=== PATIENT | female | born 1930 | race Caucasian/White ===

== ENCOUNTER 2016-11-07 11:23 | Emergency (ER) | payer MEDICARE, OTHER ==
[~2016-11-07] VITALS: Ht 144.7 cm; Wt 60.3 kg
[~2016-11-07 11:23] MED LIST: ASPIRIN81 M1 PO; CALCIUM600 M1 PO; CLARITIN10 MG PO; DIOVAN40 MG PO; LOMOTIL 0.025 M1 TA1 PO; MULTIPLE VITAMI1 CAP PO; OMNICEF300 MG PO; VICODIN 5/500 505 MG PO
[2016-11-07] MEDS ORDERED: MECLIZINE HYD12.5 MG PO (13:23)
[2016-11-07] MEDS ORDERED: PREDNISONE10 MG PO ×2 (13:23→13:30)
== END 2016-11-07 13:26 | disposition home or self-care (01) ==
LOC: ED 11:23
DX: H83.01 Labyrinthitis, right ear (principal); Z79.899 Other long term (current) drug therapy; Z79.82 Long term (current) use of aspirin

== ENCOUNTER → 2017-01-06 | Day surgery (SDC) | payer MEDICARE, OTHER ==
[~2017-01-06] VITALS: Ht 152.4 cm; Wt 61.2 kg
[~2017-01-06] MED LIST changes: +MECLIZINE HYD12.5 MG PO; +PREDNISONE10 MG PO
--- NOTE | ~2017-01-06 | O ---
[place], [place] OPERATIVE NOTE NAME: [facility] [id number] UNIT #: [id number] ROOM: DOCTOR: LESTER CORONADO MD BIRTHDATE: [birth year] DOS: 01/06/2017 PREOPERATIVE DIAGNOSIS: Toxic labyrinthitis right ear. POSTOPERATIVE DIAGNOSIS: Toxic labyrinthitis right ear. OPERATION: Intratympanic dexamethasone perfusion right ear. SURGEON: Dr. Coronado. ANESTHESIA: General. OPERATIVE FINDINGS AND PROCEDURE: Following induction of general anesthesia the patient was positioned supine on the OR table, draped in a standard fashion for ear surgery. Approximately 1 mL of dexamethasone injection 10 mg/mL concentration was placed in the right middle ear space using a 25 gauge spinal needle. The patient tolerated the procedure well, was awakened and transported to PACU in satisfactory condition. LESTER CORONADO MD CM:OPRECORD:OPERATIVE NOTE [id number] LESTER CORONADO MD 01/06/17 1500 interface
[2017-01-06 10:20] VITALS: BP 156/83
[2017-01-06 12:00] VITALS: BP 99/54
[2017-01-06 12:15] VITALS: BP 154/79
[2017-01-06 12:30] VITALS: BP 156/72
== END | disposition home or self-care (01) ==
LOC: SDC 12-31 10:15
DX: H83.01 Labyrinthitis, right ear (principal); I10 Essential (primary) hypertension; E78.5 Hyperlipidemia, unspecified; Z90.710 Acquired absence of both cervix and uterus; Z98.890 Other specified postprocedural states

== ENCOUNTER 2017-02-19 08:08 | Emergency (ER) | payer MEDICARE, OTHER ==
[~2017-02-19] VITALS: Ht 157.4 cm; Wt 63.5 kg
[~2017-02-19 08:08] MED LIST changes: -DIOVAN40 MG PO; +DIOVAN80 M1 PO
[2017-02-19] MEDS ORDERED: B COMPLEX1 EACH PO (08:17)
[2017-02-19] MEDS ORDERED: MECLIZINE HCL12.5 MG PO (08:18)
[2017-02-19 09:09] LABS: BASO # 0.1 10*3/uL (0.0-0.1); BASO % 1.2 % (0.0-1.0); EOS # 0.1 10*3/uL (0.0-0.4); EOS % 1.8 % (1.0-4.0); HEMATOCRIT 39.5 % (37.0-47.0); HEMOGLOBIN 13.3 g/dl (12.0-16.0); LYMPH # 1.1 10*3/uL (1.3-4.4); LYMPH % 25.6 % (27.0-41.0); MEAN CELL VOLUME 89.4 fl (81.0-99.0); MEAN CORPUSCULAR HGB 30.1 pg (27.0-31.0); MEAN CORPUSCULAR HGB CONC 33.7 g/dl (33.0-37.0); MEAN PLATELET VOLUME 10.7 fl (9.6-12.3); MONO # 0.5 10*3/uL (0.1-1.0); MONO % 11.1 % (3.0-9.0); NEUT # 2.6 10*3/uL (2.3-7.9); NEUT % 60.1 % (47.0-73.0); PLATELET COUNT AUTOMATED 183 10*3/uL (130-400); RED BLOOD COUNT 4.42 10*6/uL (4.10-5.10); RED CELL DISTRI WIDTH 12.8 % (0-14.5); WHITE BLOOD COUNT 4.3 10*3/uL (4.8-10.8)
[2017-02-19 09:24] LABS: ALBUMIN 3.2 gm/dl (3.1-4.5); ALKALINE PHOSPHATASE 84 U/L (45-117); BILIRUBIN, TOTAL 0.3 mg/dl (0.2-1.0); BUN 17 mg/dl (7-24); CARBON DIOXIDE 28 mmol/L (21-32); CHLORIDE 105 mmol/L (98-107); EST GLOM FILT AFRICAN AMERICAN > 60 ml/min; GLUCOSE 87 mg/dL (65-99); POTASSIUM 3.6 mmol/L (3.5-5.1); SGOT/AST 17 IU/L (3-35); SGPT/ALT 17 U/L (12-78); SODIUM 142 mmol/L (136-145); TOTAL PROTEIN 6.5 gm/dL (6.4-8.2)
[2017-02-19] MEDS ORDERED: GOOD NEIGHBOR M25 M1 PO (11:03)
== END 2017-02-19 11:11 | disposition home or self-care (01) ==
LOC: ED 08:08
PROVIDERS: Emergency Medicine
DX: H83.09 Labyrinthitis, unspecified ear (principal); Z79.82 Long term (current) use of aspirin; Z79.899 Other long term (current) drug therapy

== ENCOUNTER 2017-06-21 18:25 | Inpatient (IN) | payer MEDICARE, OTHER ==
[~2017-06-21] VITALS: Ht 154.9 cm; Wt 61.3 kg
--- NOTE | ~2017-06-21 | CON ---
[place], [place] REPORT OF CONSULTATION NAME[id number] UNIT #: [id number] ROOM: 505 DOCTOR: ASHLEY HA MD BIRTHDATE: [birth year] DOS: 06/22/2017 CARDIOLOGY CONSULTATION REASON FOR CONSULTATION: Near syncope, elevated troponin. HISTORY OF PRESENT ILLNESS: The patient is an 87-year-old woman who has no previously documented heart disease. She does have a history of essential hypertension, but no history of diabetes, myocardial infarction, or stroke. Several months ago, she did have an episode of vertigo that was felt to be due to an acute middle ear infection. She was treated with an injection of steroid into the middle ear. This improved, but recently the patient has had problems with lightheadedness and fatigue. She also noticed increased urinary frequency. She was seen by her primary physician, Dr. Francois, who diagnosed a urinary tract infection and placed her on Macrodantin. She became even more lightheaded and was concerned that the medicine may be having an adverse reaction for her. She therefore came in to the Emergency Room, where she was noted to be hypertensive with a normal pulse. She was hyponatremic with sodium of 128. In addition, her troponin was mildly elevated at 0.314. On repeat it was 0.213 and then it was 0.166. Cardiology was therefore asked to assist in her evaluation. The patient denies any chest pain. She denies palpitations, but has been weak and lightheaded. Her electrocardiogram showed no acute changes. PAST MEDICAL HISTORY: Includes: 1. Essential hypertension. 2. Vertigo. 3. Foot surgery, thyroidectomy and hysterectomy. 4. No history of myocardial infarction, stroke or diabetes. MEDICATIONS: Prior to admission included aspirin 81 mg per day, calcium carbonate 600 mg daily, loratadine 10 mg daily p.r.n., meclizine 25 mg q.i.d. p.r.n. vertigo, multivitamin once a day, valsartan 80 mg daily, multivitamin with B daily, and diclofenac gel 100 mg applied topically t.i.d. ALLERGIES: The patient has no known drug allergies. REVIEW OF SYSTEMS: The patient denies diplopia or loss of vision. She denies focal weakness. She denies fevers, chills, sweats or recent weight change. She denies vomiting, but she has had some nausea. She has had urinary frequency. She denies hemoptysis or hematemesis. She has not had any chest pain or palpitations. She denies any skin rashes. She denies peripheral edema. The remainder of the review of systems is negative except as noted above. SOCIAL HISTORY: The patient lives alone. She does not smoke or consume alcohol. PHYSICAL EXAMINATION: GENERAL: Reveals an elderly, slender white female who is awake, alert and oriented. [place], [place] REPORT OF CONSULTATION NAME: ZEESHAN KAPADIA UNIT #: [id number] ROOM: [facility] DOCTOR: ASHLEY HA MD BIRTHDATE: [birth year] VITAL SIGNS: Pulse is 63 and regular, blood pressure is 125/61. She is afebrile. She weighs 61.3 kg and has a body mass index of 25.5. HEENT: Normocephalic and atraumatic. Extraocular muscles are intact. Sclerae are clear. Pupils are equal, round and react to light. The oral mucosa is moist. Tongue is midline. NECK: Supple. She has no jugular distention. Carotids are full. I heard no bruits. She had no neck or supraclavicular masses and no thyromegaly. RESPIRATORY: Respirations are unlabored. Her chest is clear to auscultation and percussion. She has no presacral edema or chest wall tenderness. CARDIOVASCULAR: Her heart has a regular rhythm. She has a fourth heart sound, but no third heart sound. She has a grade 2/6 systolic ejection murmur along the left sternal border, radiating toward the base. No diastolic murmurs are present. The S2 is well preserved. There is no S3. ABDOMEN: Soft and normally active without masses, organomegaly or bruits. EXTREMITIES: Showed no edema. Pedal pulses are palpable in the feet. DIAGNOSTIC DATA: Echocardiogram was reviewed. It shows aortic sclerosis without stenosis. It shows left ventricular size and overall function to be normal with an ejection fraction of about 60%. There is stage 1 diastolic dysfunction and mild concentric left ventricular hypertrophy present. There is mitral annular calcification, but no significant mitral malfunction. Right ventricular systolic pressures are normal. IMPRESSION: 1. Lightheadedness with near syncope. 2. Hyponatremia. 3. Mild elevation in troponin. 4. Urinary tract infection. 5. Hypertension with echocardiographic evidence for hypertensive heart disease. PLAN: I have a hard time explaining the patient's hyponatremia, based on her medications or history. It is possible that she is a psychogenic water drinker, but she is not behaving that way in the hospital and her sodium is correcting rapidly. It may be that she has a very limited diet at home, but again I do not have any evidence for that. I agree that she should be treated for urinary tract infection. We will check orthostatic vital signs. She has been in sinus rhythm on the monitor. If her orthostatics are normal, I do not know that any other cardiac workup would be appropriate at this time. Even with her mild elevation in troponin, I think that the troponin could be attributed to her urinary tract infection and do not suspect that she has any significant coronary artery disease based on her EKG and echo. I thank the hospitalist physicians for asking our advice regarding her care. [place], [place] REPORT OF CONSULTATION NAME: KANGZEESHAN UNIT #: [id number] ROOM: [facility] DOCTOR: ASHLEY HA MD BIRTHDATE: [birth year] ASHLEY HA MD CM:CONSTR:REPORT OF CONSULTATION 1632 06/23/17 0445 interface
[~2017-06-21 18:25] MED LIST changes: +B COMPLEX1 EACH PO; +GOOD NEIGHBOR M25 M1 PO; +MECLIZINE HCL12.5 MG PO
[2017-06-21 18:30] VITALS: BP 176/92
[2017-06-21 19:23] LABS: BILIRUBIN NEGATIVE (NEGATIVE); BLOOD 1+ (NEGATIVE); CLARITY CLEAR (CLEAR); COLOR YELLOW (YELLOW); GLUCOSE NEGATIVE (NEGATIVE); KETONE NEGATIVE (NEGATIVE); LEUKO ESTERASE 1+ (NEGATIVE); NITRITE NEGATIVE (NEGATIVE); PH 6.5 (5.0-9.0); SPECIFIC GRAVITY <= 1.005 (1.005-1.030); UROBILINOGEN 0.2 E.U./dl (0.2-1.0)
[2017-06-21 19:28] LABS: BACTERIA 1+; EPITHELIAL CELLS 0-2; RBC 0-2 rbc/hpf (0-2)
[2017-06-21 19:29] VITALS: BP 167/83
[2017-06-21 19:35] LABS: BASO % 0.6 % (0.0-1.0); EOS % 0.8 % (1.0-4.0); HEMATOCRIT 36.8 % (37.0-47.0); HEMOGLOBIN 12.9 g/dl (12.0-16.0); LYMPH # 1.3 10*3/uL (1.3-4.4); LYMPH % 26.3 % (27.0-41.0); MEAN CELL VOLUME 84.6 fl (81.0-99.0); MEAN CORPUSCULAR HGB 29.7 pg (27.0-31.0); MEAN CORPUSCULAR HGB CONC 35.1 g/dl (33.0-37.0); MONO # 0.6 10*3/uL (0.1-1.0); MONO % 11.6 % (3.0-9.0); NEUT % 60.5 % (47.0-73.0); PLATELET COUNT AUTOMATED 207 10*3/uL (130-400); RED BLOOD COUNT 4.35 10*6/uL (4.10-5.10); RED CELL DISTRI WIDTH 13.2 % (0-14.5)
[2017-06-21 19:53] LABS: ALBUMIN 3.1 gm/dl (3.1-4.5); ALKALINE PHOSPHATASE 94 U/L (45-117); BUN 11 mg/dl (7-24); CHLORIDE 92 mmol/L (98-107); CREATININE 0.41 mg/dL (0.55-1.02); SGOT/AST 22 IU/L (3-35); SGPT/ALT 22 U/L (12-78); SODIUM 128 mmol/L (136-145); TOTAL PROTEIN 6.7 gm/dL (6.4-8.2)
[2017-06-21 19:56] LABS: TROPONIN I 0.314 ng/ml (<0.045)
--- NOTE | 2017-06-21 19:57 | NUR ---
CRITICAL TROPININ FROM LAB. DR. HELLER AND JOYCELYN TALAVERA NOTIFIED.
[2017-06-21 20:11] VITALS: BP 171/83
--- NOTE | 2017-06-21 21:16 | NUR ---
REPORT RECEIVED FROM MARTÍNEZ OWEN FROM ER AT THIS TIME. PATIENT TO ARRIVE TO FLOOR SHORTLY.
--- NOTE | 2017-06-21 21:25 | NUR ---
A 87, admitted to 5E, under the services of JVOAN Toure DO with a diagnosis of HYPONATREMIA, ELEVATION OF CARDIAC ENZYMES, NEAR SYNCOPE. Chief complaint is UTI SYMPTOMS, DIZZINESS. Patient arrived via stretcher from ER. Monitor applied. Initial assessment completed. Vital signs taken and recorded. JOVAN TOURE DO notified of admission to the unit. Orders received. See assessment for past medical history, medications and allergies. Patient and/or family oriented to unit. [facility] visitation policy reviewed. Clothing/patient valuable form completed. WERNER NOLASCO
[2017-06-21 21:30] VITALS: BP 186/88
--- NOTE | 2017-06-21 21:58 | NUR ---
SPOKE TO AT THIS TIME. DISCUSSED PATIENT ADMITTING DX, EKG, TROPONIN 0.314, AND OTHER PERTINENT LABS. INSTRUCTED TO ORDER LOVENOX 1 MG/KG SQ X1 DOSE, ASPIRIN 81 MG PO X1, AND IMDUR 60 MG PO X1. ALSO INSTRUCTED TO ORDER A D-DIMER.
[2017-06-21 22:00] VITALS: BP 186/88
--- NOTE | 2017-06-21 22:54 | NUR ---
NOTIFIED OF CRITICAL TROPONIN 0.213, DOWN FROM 0.314.
--- NOTE | 2017-06-21 23:42 | NUR ---
NOTIFIED OF PATIENT'S WISHES TO BE A FULL CODE WITH NO INTUBATION. PER , OKAY TO CHANGE CODE STATUS ORDER AT THIS TIME.
[2017-06-22] VITALS: BP 140/75
[2017-06-22] MEDS ORDERED: GOOD NEIGHBOR M25 M1 PO (00:38)
[2017-06-22] MEDS ORDERED: MACROBID100 M1 PO (00:40)
--- NOTE | 2017-06-22 01:41 | NUR ---
NOTIFIED OF CRITICAL TROPONIN 0.166 DOWN FROM 0.213. NO NEW ORDERS RECEIVED.
--- NOTE | 2017-06-22 03:49 | NUR ---
PATIENT ASLEEP IN BED, AROUSES EASILY. NO S/S OF DISTRESS NOTED. WILL MONITOR. CALL LIGHT LEFT IN REACH.
[2017-06-22 06:25] LABS: BASO % 0.8 % (0.0-1.0); EOS # 0.1 10*3/uL (0.0-0.4); EOS % 1.4 % (1.0-4.0); HEMATOCRIT 33.8 % (37.0-47.0); HEMOGLOBIN 11.4 g/dl (12.0-16.0); LYMPH # 1.8 10*3/uL (1.3-4.4); LYMPH % 35.3 % (27.0-41.0); MEAN CELL VOLUME 86.2 fl (81.0-99.0); MEAN CORPUSCULAR HGB 29.1 pg (27.0-31.0); MEAN CORPUSCULAR HGB CONC 33.7 g/dl (33.0-37.0); MEAN PLATELET VOLUME 10.4 fl (9.6-12.3); MONO # 0.6 10*3/uL (0.1-1.0); MONO % 10.9 % (3.0-9.0); NEUT # 2.6 10*3/uL (2.3-7.9); PLATELET COUNT AUTOMATED 207 10*3/uL (130-400); RED BLOOD COUNT 3.92 10*6/uL (4.10-5.10); RED CELL DISTRI WIDTH 13.6 % (0-14.5); WHITE BLOOD COUNT 5.1 10*3/uL (4.8-10.8)
[2017-06-22 06:50] LABS: ACT PARTIAL THROMBO TIME 27.1 SECONDS (20.8-31.5)
[2017-06-22 06:54] LABS: BUN 10 mg/dl (7-24); CHLORIDE 100 mmol/L (98-107); POTASSIUM 3.6 mmol/L (3.5-5.1); SODIUM 135 mmol/L (136-145)
[2017-06-22 07:06] LABS: CREATININE 0.42 mg/dL (0.55-1.02)
[2017-06-22 08:00] VITALS: BP 107/57
--- NOTE | 2017-06-22 08:00 | NUR ---
ASSISTED BACK TO BED FROM BATHROOM. RESP-EASY AND REGULAR. NO C/O AT THIS TIME. IVF INFUSING WITH NO PROBLEM. CALL LIGHT IN REACH. SEE SHIFT ASSESSMENT.
[2017-06-22 08:55] LABS: VITAMIN D, 25-HYDROXY 41.9 ng/mL (30-100)
--- NOTE | 2017-06-22 09:00 | NUR ---
Algorithm Design Engineer in to talk to patient. Patient states lives at home with alone. There are few steps in the home. Physician: gabe [facility] [place] health services: none Patient's level of ADLs: INDEPENDENT Patient has working utilities: all working DME: has a cane, bedside commode and walker from her Follow-up physician's appointment after d/c: will be made by hospitalist nurse director upon discharge Does patient want to access PORTAL?: no Discharge plan discussed with patient, daughter present, patient states she lives at home alone, is independent in adls and ambulation, has equipment from her is needed, but doesn't use any at this time, drives, patient states she will be going back home when able, discussed with her VNA and she refused any at this time, daughter was inagreement. DARREN RAMIREZ
--- NOTE | 2017-06-22 10:11 | NUR ---
RADHA CABRAL AWARE PT MEDS ARE UPDATED.
[2017-06-22] MEDS ORDERED: VOLTAREN100 GM T (11:27)
[2017-06-22 12:00] VITALS: BP 125/61
--- NOTE | 2017-06-22 12:00 | NUR ---
RESTING IN BED WITH VISITOR AT HER SIDE. RESP-EASY AND REGULAR. NO C/O AT THIS TIME. CALL LIGHT IN REACH.
--- NOTE | 2017-06-22 14:00 | NUR ---
RESTING IN BED. RESP-EASY AND REGULAR. IVF INFUSING WITH NO PROBLEM. CALL LIGHT IN REACH.
[2017-06-22 16:00] VITALS: BP 112/55
--- NOTE | 2017-06-22 16:20 | NUR ---
PT RESTING IN BED. ORTHO DONE PT BECAME DIZZY WHEN SHE WENT FROM LYING TO SITTING POSITION. CALL LIGHT IN REACH. SEE SHIFT ASSESSMENT.
--- NOTE | 2017-06-22 18:30 | NUR ---
RESTIN GIN BED. NO C/O AT THIS TIME. CALL LIGHT IN REACH.
[2017-06-22 20:00] VITALS: BP 138/78
--- NOTE | 2017-06-22 22:33 | NUR ---
ORTHOSTATIC BLOOD PRESSURES TAKEN AT THIS TIME. PATIENT STATES SHE FELT SLIGHTLY DIZZY, BUT NOT BAD SHE HAD BEEN. SEE INTERVENTION FOR BP/HR RESULTS. PATIENT ASSISTED UP TO BATHROOM AND BACK TO BED AT THIS TIME. CALL LIGHT LEFT IN REACH.
[2017-06-23] VITALS: BP 150/65
--- NOTE | 2017-06-23 02:53 | NUR ---
PATIENT ASSISTED OOB TO BATHROOM AT THIS TIME. NO C/O DIZZINESS AT PRESENT TIME. WILL CONTINUE TO MONITOR. CALL LIGHT LEFT IN REACH.
--- NOTE | 2017-06-23 03:55 | NUR ---
PATIENT ASLEEP IN BED AT THIS TIME. RESPIRATIONS EASY. NO S/S OF DISTRESS NOTED. ON ROOM AIR. WILL CONTINUE TO MONITOR. CALL LIGHT LEFT IN REACH.
[2017-06-23 08:00] VITALS: BP 160/65
--- NOTE | 2017-06-23 08:20 | NUR ---
PT AMBULATORY TO BATHROOM AND BACK. RESP-EASY AND REGULAR. IVF INF USING WITH NO PROBLEM. NO C/O AT THIS TIME. CALL LIGHT IN REACH. SEE SHIFT ASSESSMENT.
[2017-06-23 08:37] LABS: BASO % 0.7 % (0.0-1.0); EOS # 0.1 10*3/uL (0.0-0.4); EOS % 2.4 % (1.0-4.0); HEMATOCRIT 37.9 % (37.0-47.0); HEMOGLOBIN 12.9 g/dl (12.0-16.0); LYMPH % 36.9 % (27.0-41.0); MEAN CELL VOLUME 86.9 fl (81.0-99.0); MEAN CORPUSCULAR HGB 29.6 pg (27.0-31.0); MEAN PLATELET VOLUME 9.8 fl (9.6-12.3); MONO # 0.6 10*3/uL (0.1-1.0); MONO % 11.5 % (3.0-9.0); NEUT # 2.6 10*3/uL (2.3-7.9); NEUT % 48.1 % (47.0-73.0); PLATELET COUNT AUTOMATED 227 10*3/uL (130-400); RED BLOOD COUNT 4.36 10*6/uL (4.10-5.10); RED CELL DISTRI WIDTH 13.9 % (0-14.5); WHITE BLOOD COUNT 5.4 10*3/uL (4.8-10.8)
[2017-06-23 08:48] LABS: BUN 8 mg/dl (7-24); CHLORIDE 107 mmol/L (98-107); CREATININE 0.49 mg/dL (0.55-1.02); PHOSPHOROUS 3.2 mg/dL (2.5-4.9); POTASSIUM 4.1 mmol/L (3.5-5.1); SODIUM 140 mmol/L (136-145)
--- NOTE | 2017-06-23 09:00 | NUR ---
case management visits with patient, patient denies any home needs
--- NOTE | 2017-06-23 10:00 | NUR ---
RESTING IN BED. IVF INFUSING WITH NO PROBLEM. NO C/O AT THIS TIME. CALL LIGHT IN REACH.
[2017-06-23] MEDS ORDERED: CEFUROXIME AXE250 MG PO (11:29)
--- NOTE | 2017-06-23 11:52 | NUR ---
Discharge instructions reviewed with patient/family. Patient receptive and verbalizes understanding. Follow-up care arranged. Written instructions given to patient/family. NANCY FELIPE
[2017-06-23 12:00] VITALS: BP 162/76
--- NOTE | 2017-06-23 12:30 | NUR ---
RESTING IN BED. RESP-EASY AND REGULAR. CALL LIGHT IN REACH.
--- NOTE | 2017-06-23 14:00 | NUR ---
PT RESTING NI BED, WAITING FOR RIDE FOR DISCHARGE. CALL LIGHT IN REACH.
--- NOTE | 2017-06-23 16:33 | NUR ---
PT AMBULATORY OFF THE FLOOR WITH FAMILY. HEPLOCK REMOVED. 2X2 APPLIED. MONITOR REMOVED.
== END 2017-06-23 16:33 | disposition home or self-care (01) | DRG 690 ==
LOC: ED 18:25 → EDHOLD 20:22 → 5E 20:22
PROVIDERS: Internal Medicine; Physician Assistant; Registered Nurse; ADMIT Internal Medicine
DX: N30.00 Acute cystitis without hematuria (principal); E87.1 Hypo-osmolality and hyponatremia; I11.0 Hypertensive heart disease with heart failure; E89.0 Postprocedural hypothyroidism; R74.8 Abnormal levels of other serum enzymes; Z90.711 Acquired absence of uterus with remaining cervical stump; Z60.2 Problems related to living alone; Z79.82 Long term (current) use of aspirin; Z79.899 Other long term (current) drug therapy

== ENCOUNTER 2017-08-16 13:46 | Inpatient (IN) | payer MEDICARE, OTHER ==
[~2017-08-16] VITALS: Ht 144.7 cm; Wt 61.3 kg
[2017-08-16] VITALS (7 sets, daily range): BP systolic 144–217; BP diastolic 66–81
[~2017-08-16 13:46] MED LIST changes: +CEFUROXIME AXE250 MG PO; +MACROBID100 M1 PO; +VOLTAREN100 GM T
[2017-08-16 14:39] LABS: BASO # 0.1 10*3/uL (0.0-0.1); BASO % 0.9 % (0.0-1.0); EOS # 0.1 10*3/uL (0.0-0.4); EOS % 1.4 % (1.0-4.0); HEMATOCRIT 39.9 % (37.0-47.0); HEMOGLOBIN 13.3 g/dl (12.0-16.0); LYMPH # 1.4 10*3/uL (1.3-4.4); LYMPH % 20.6 % (27.0-41.0); MEAN CELL VOLUME 88.3 fl (81.0-99.0); MEAN CORPUSCULAR HGB 29.4 pg (27.0-31.0); MEAN CORPUSCULAR HGB CONC 33.3 g/dl (33.0-37.0); MEAN PLATELET VOLUME 10.1 fl (9.6-12.3); MONO # 0.6 10*3/uL (0.1-1.0); MONO % 8.1 % (3.0-9.0); NEUT # 4.8 10*3/uL (2.3-7.9); NEUT % 68.7 % (47.0-73.0); PLATELET COUNT AUTOMATED 236 10*3/uL (130-400); RED BLOOD COUNT 4.52 10*6/uL (4.10-5.10); RED CELL DISTRI WIDTH 13.2 % (0-14.5)
[2017-08-16 14:48] LABS: ACT PARTIAL THROMBO TIME 23.9 SECONDS (20.8-31.5)
[2017-08-16 14:57] LABS: ALBUMIN 3.3 gm/dl (3.1-4.5); ALKALINE PHOSPHATASE 104 U/L (45-117); BUN 19 mg/dl (7-24); CHLORIDE 100 mmol/L (98-107); CREATININE 0.56 mg/dL (0.55-1.02); POTASSIUM 4.1 mmol/L (3.5-5.1); SGOT/AST 22 IU/L (3-35); SGPT/ALT 24 U/L (12-78); SODIUM 137 mmol/L (136-145); TOTAL PROTEIN 6.9 gm/dL (6.4-8.2)
[2017-08-16 14:58] LABS: TROPONIN I < 0.015 ng/ml (<0.045)
[2017-08-17] VITALS: BP 150/78
[2017-08-17 07:18] LABS: BASO # 0.1 10*3/uL (0.0-0.1); BASO % 1.4 % (0.0-1.0); EOS # 0.2 10*3/uL (0.0-0.4); EOS % 3.3 % (1.0-4.0); HEMATOCRIT 39.8 % (37.0-47.0); HEMOGLOBIN 13.3 g/dl (12.0-16.0); LYMPH # 1.7 10*3/uL (1.3-4.4); LYMPH % 34.6 % (27.0-41.0); MEAN CELL VOLUME 89.8 fl (81.0-99.0); MEAN CORPUSCULAR HGB CONC 33.4 g/dl (33.0-37.0); MEAN PLATELET VOLUME 10.7 fl (9.6-12.3); MONO # 0.5 10*3/uL (0.1-1.0); MONO % 10.3 % (3.0-9.0); NEUT # 2.4 10*3/uL (2.3-7.9); NEUT % 50.2 % (47.0-73.0); PLATELET COUNT AUTOMATED 215 10*3/uL (130-400); RED BLOOD COUNT 4.43 10*6/uL (4.10-5.10); RED CELL DISTRI WIDTH 13.2 % (0-14.5); WHITE BLOOD COUNT 4.9 10*3/uL (4.8-10.8)
[2017-08-17 07:34] LABS: BUN 17 mg/dl (7-24); CHLORIDE 106 mmol/L (98-107); CHOLESTEROL 208 mg/dL (<200); HDL CHOLESTEROL 74 mg/dl (40-60); LDL CHOLESTEROL 118 mg/dL (9-159); PHOSPHOROUS 3.8 mg/dL (2.5-4.9); POTASSIUM 4.3 mmol/L (3.5-5.1); SODIUM 143 mmol/L (136-145); TRIGLYCERIDES 80 mg/dl (<150); VLDL CHOLESTEROL 16 mg/dL (6-40)
[2017-08-17 07:43] LABS: FREE T4 1.04 ng/dl (0.76-1.46)
[2017-08-17 07:50] LABS: BILIRUBIN NEGATIVE (NEGATIVE); BLOOD NEGATIVE (NEGATIVE); CLARITY CLEAR (CLEAR); COLOR YELLOW (YELLOW); GLUCOSE NEGATIVE (NEGATIVE); KETONE NEGATIVE (NEGATIVE); LEUKO ESTERASE NEGATIVE (NEGATIVE); NITRITE NEGATIVE (NEGATIVE); SPECIFIC GRAVITY <= 1.005 (1.005-1.030); UROBILINOGEN 0.2 E.U./dl (0.2-1.0)
[2017-08-17 08:00] VITALS: BP 148/70
[2017-08-17 08:03] LABS: RBC 0-2 rbc/hpf (0-2); WBC 0-2 wbc/hpf (0-5)
[2017-08-17 12:00] VITALS: BP 144/66
[2017-08-17 16:00] VITALS: BP 164/71
[2017-08-17 20:00] VITALS: BP 149/67
[2017-08-18] VITALS: BP 168/78; BP 174/71
[2017-08-18 08:00] VITALS: BP 154/66
[2017-08-18 12:00] VITALS: BP 150/58
== END 2017-08-18 15:45 | disposition home or self-care (01) | DRG 312 ==
LOC: ED 13:46 → EDHOLD 15:41 → 5E 15:41
PROVIDERS: Student in an Organized Health Care Education/Training Program
DX: R55 Syncope and collapse (principal); E83.39 Other disorders of phosphorus metabolism; H83.09 Labyrinthitis, unspecified ear; I10 Essential (primary) hypertension; E89.0 Postprocedural hypothyroidism; Z79.899 Other long term (current) drug therapy; Z79.82 Long term (current) use of aspirin; Z90.49 Acquired absence of other specified parts of digestive tract; Z90.710 Acquired absence of both cervix and uterus

== ENCOUNTER 2017-10-30 10:38 | Inpatient (IN) | payer MEDICARE, OTHER ==
[~2017-10-30] VITALS: Ht 152.4 cm
--- NOTE | ~2017-10-30 | EKG ---
[place], [place] ELECTROCARDIOGRAM REPORT NAME: ZEESHAN KAPADIA UNIT #: [id number] ROOM: 508 DOCTOR: GRAY TAY,JOAN BIRTHDATE: [birth year] DOS: 10/30/2017 TIME: 11:41. IMPRESSION: 1. Sinus rhythm. 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 3. Sinus bradycardia. 4. First-degree AV block. JOAN CASTELLANO MD CM:EKGRPT:ELECTROCARDIOGRAM REPORT [id number] JOAN CASTELLANO MD
[2017-10-30 10:44] VITALS: BP 175/72
[2017-10-30 11:27] LABS: BASO % 0.8 % (0.0-1.0); EOS # 0.1 10*3/uL (0.0-0.4); EOS % 1.8 % (1.0-4.0); HEMATOCRIT 39.7 % (37.0-47.0); HEMOGLOBIN 13.5 g/dl (12.0-16.0); LYMPH # 1.4 10*3/uL (1.3-4.4); LYMPH % 28.4 % (27.0-41.0); MEAN CELL VOLUME 87.6 fl (81.0-99.0); MEAN CORPUSCULAR HGB 29.8 pg (27.0-31.0); MEAN PLATELET VOLUME 10.3 fl (9.6-12.3); MONO # 0.5 10*3/uL (0.1-1.0); MONO % 9.8 % (3.0-9.0); NEUT # 2.9 10*3/uL (2.3-7.9); PLATELET COUNT AUTOMATED 215 10*3/uL (130-400); RED BLOOD COUNT 4.53 10*6/uL (4.10-5.10); RED CELL DISTRI WIDTH 13.2 % (0-14.5); WHITE BLOOD COUNT 4.9 10*3/uL (4.8-10.8)
[2017-10-30 11:36] LABS: ACT PARTIAL THROMBO TIME 23.9 SECONDS (20.8-31.5)
[2017-10-30 11:44] LABS: ALBUMIN 3.1 gm/dl (3.1-4.5); ALKALINE PHOSPHATASE 95 U/L (45-117); BUN 10 mg/dl (7-24); CHLORIDE 96 mmol/L (98-107); CREATININE 0.49 mg/dL (0.55-1.02); LIPASE 103 U/L (73-393); POTASSIUM 4.3 mmol/L (3.5-5.1); SGOT/AST 21 IU/L (3-35); SGPT/ALT 21 U/L (12-78); SODIUM 132 mmol/L (136-145); TOTAL PROTEIN 6.7 gm/dL (6.4-8.2)
[2017-10-30 11:45] LABS: TROPONIN I < 0.015 ng/ml (<0.045)
[2017-10-30 11:59] LABS: BILIRUBIN NEGATIVE (NEGATIVE); BLOOD TRACE-LYSED (NEGATIVE); CLARITY SL CLOUDY (CLEAR); COLOR YELLOW (YELLOW); GLUCOSE NEGATIVE (NEGATIVE); KETONE NEGATIVE (NEGATIVE); LEUKO ESTERASE 1+ (NEGATIVE); NITRITE NEGATIVE (NEGATIVE); PH 5.5 (5.0-9.0); SPECIFIC GRAVITY <= 1.005 (1.005-1.030); UROBILINOGEN 0.2 E.U./dl (0.2-1.0)
[2017-10-30 12:00] VITALS: BP 160/78
[2017-10-30 12:04] LABS: BACTERIA 1+
[2017-10-30 13:36] VITALS: BP 158/81
[2017-10-30 20:00] VITALS: BP 158/72
[2017-10-31] VITALS: BP 142/78
[2017-10-31 06:11] LABS: BASO # 0.1 10*3/uL (0.0-0.1); EOS # 0.2 10*3/uL (0.0-0.4); HEMATOCRIT 39.1 % (37.0-47.0); LYMPH # 1.6 10*3/uL (1.3-4.4); LYMPH % 31.9 % (27.0-41.0); MEAN CELL VOLUME 88.5 fl (81.0-99.0); MEAN CORPUSCULAR HGB 29.4 pg (27.0-31.0); MEAN CORPUSCULAR HGB CONC 33.2 g/dl (33.0-37.0); MEAN PLATELET VOLUME 10.8 fl (9.6-12.3); MONO # 0.5 10*3/uL (0.1-1.0); MONO % 10.8 % (3.0-9.0); NEUT # 2.6 10*3/uL (2.3-7.9); NEUT % 52.1 % (47.0-73.0); PLATELET COUNT AUTOMATED 216 10*3/uL (130-400); RED BLOOD COUNT 4.42 10*6/uL (4.10-5.10); RED CELL DISTRI WIDTH 13.2 % (0-14.5)
[2017-10-31 06:42] LABS: BUN 11 mg/dl (7-24); CHLORIDE 104 mmol/L (98-107); CHOLESTEROL 178 mg/dL (<200); CREATININE 0.43 mg/dL (0.55-1.02); HDL CHOLESTEROL 60 mg/dl (40-60); LDL CHOLESTEROL 100 mg/dL (9-159); POTASSIUM 3.7 mmol/L (3.5-5.1); SODIUM 140 mmol/L (136-145); TRIGLYCERIDES 88 mg/dl (<150); VLDL CHOLESTEROL 18 mg/dL (6-40)
[2017-10-31 07:32] LABS: VITAMIN D, 25-HYDROXY 43.8 ng/mL (30-100)
[2017-10-31 08:00] VITALS: BP 168/80
[2017-10-31 12:00] VITALS: BP 175/59
[2017-10-31] MEDS ORDERED: GOOD NEIGHBOR M25 M1 PO (12:12)
[2017-10-31] MEDS ORDERED: HYDROCHLOROTH12.5 M3 PO (12:31)
== END 2017-10-31 13:37 | disposition home or self-care (01) | DRG 641 ==
LOC: ED 10:38 → EDHOLD 13:33 → 5E 13:46
PROVIDERS: Emergency Medicine; Internal Medicine Hospice and Palliative Medicine
DX: E86.0 Dehydration (principal); E87.8 Other disorders of electrolyte and fluid balance, not elsewhere classified; R00.1 Bradycardia, unspecified; E87.1 Hypo-osmolality and hyponatremia; R26.81 Unsteadiness on feet; H83.09 Labyrinthitis, unspecified ear; E89.0 Postprocedural hypothyroidism; I10 Essential (primary) hypertension; Z79.899 Other long term (current) drug therapy; Z90.721 Acquired absence of ovaries, unilateral; Z82.49 Family history of ischemic heart disease and other diseases of the circulatory system; Z79.82 Long term (current) use of aspirin; Z90.711 Acquired absence of uterus with remaining cervical stump

== ENCOUNTER 2018-09-24 17:05 | Emergency (ER) | payer MEDICARE, OTHER ==
[~2018-09-24] VITALS: Ht 152.4 cm; Wt 61.2 kg
[~2018-09-24 17:05] MED LIST changes: +HYDROCHLOROTH12.5 M3 PO
[2018-09-24] MEDS ORDERED: KEFLEX500 M1 PO (17:34)
== END 2018-09-24 17:45 | disposition home or self-care (01) ==
LOC: ED 17:05
DX: S61.412A Laceration without foreign body of left hand, initial encounter (principal); I10 Essential (primary) hypertension; Z23 Encounter for immunization; Z90.710 Acquired absence of both cervix and uterus; Z79.899 Other long term (current) drug therapy; Z79.82 Long term (current) use of aspirin; W22.8XXA Striking against or struck by other objects, initial encounter; Y93.89 Activity, other specified; Y92.89 Other specified places as the place of occurrence of the external cause; Y99.8 Other external cause status

== ENCOUNTER 2018-11-04 12:39 | Emergency (ER) | payer MEDICARE, OTHER ==
[~2018-11-04] VITALS: Ht 152.4 cm; Wt 60.8 kg
[~2018-11-04 12:39] MED LIST changes: +KEFLEX500 M1 PO
== END 2018-11-04 14:50 | disposition home or self-care (01) ==
LOC: ED 12:39
DX: S60.011A Contusion of right thumb without damage to nail, initial encounter (principal); M54.5 Low back pain; M25.531 Pain in right wrist; I10 Essential (primary) hypertension; E78.5 Hyperlipidemia, unspecified; Z79.899 Other long term (current) drug therapy; Z79.2 Long term (current) use of antibiotics; Z79.82 Long term (current) use of aspirin; Z90.710 Acquired absence of both cervix and uterus; W18.39XA Other fall on same level, initial encounter; Y93.89 Activity, other specified; Y92.096 Garden or yard of other non-institutional residence as the place of occurrence of the external cause; Y99.8 Other external cause status

== ENCOUNTER → 2018-11-16 | Outpatient (CLI) | payer MEDICARE, OTHER ==
[~2018-11-16] MED LIST changes: +LOSARTAN-HCTZ1 EAC2 PO
== END | disposition home or self-care (01) ==
LOC: ORTHO 03:22
DX: M19.031 Primary osteoarthritis, right wrist (principal)

== ENCOUNTER → 2018-12-01 | Outpatient (CLI) | payer MEDICARE, OTHER | END | disposition home or self-care (01) | LOC: ORTHO 00:57 | DX: S52.591D Other fractures of lower end of right radius, subsequent encounter for closed fracture with routine healing (principal); M19.031 Primary osteoarthritis, right wrist; X58.XXXD Exposure to other specified factors, subsequent encounter ==

== ENCOUNTER 2019-01-09 15:25 | Inpatient (IN) | payer MEDICARE, OTHER ==
[~2019-01-09] VITALS: Ht 152.4 cm; Wt 59.0 kg
--- NOTE | ~2019-01-09 | EKG ---
[place], [place] ELECTROCARDIOGRAM REPORT NAME: ZEESHAN KAPADIA UNIT #: [id number] ROOM: 506 DOCTOR: TRACY DRAFT REPORT BIRTHDATE: [birth year] [facility] Test Date: 2019-01-09 Test Time: 15:59:26 Pat Name: ZEESHAN KAPADIA Department: ER Room: 506 Gender: F [place] Former: EKG.[place] : 1930 Requested By: MYLES ISLAS Order Number: [id number] Reading MD: Tessy Recinos MD Measurements Intervals [place] Rate: 63 P: -5 FL: 217 QRS: -21 QRSD: 94 T: 29 QT: 422 QTc: 433 Interpretive Statements Sinus rhythm Borderline prolonged FL interval Inferior infarct, old Electronically Signed On 01-10-2019 15:03:35 PDT by Tessy Recinos MD CM:EKGRPT:ELECTROCARDIOGRAM REPORT [id number] MYLES COTTO DRAFT REPORT MYLES ISLAS DO
--- NOTE | ~2019-01-09 | PR ---
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 A CT scan of the abdomen was obtained to rule out metastasis. A small subcentimeter mesenteric lymph node within the right upper quadrant and there is a density measuring 2 x 2, may represent an enlarged retroperitoneal lymph node within the right retroperitoneum adjacent to the liver. Compression fracture of T12 was noticed. Latest H and H 12 and 38. Latest comprehensive metabolic panel all within normal limits, borderline hypokalemia secondary to not eating. LABORATORY DATA: Reviewed. Records reviewed. Biopsy is still pending. REVIEW OF SYSTEMS: RESPIRATORY: No shortness of breath. CARDIOVASCULAR: No chest pain. DIGESTIVE SYSTEM: No hematemesis, no hematochezia. 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 PHYSICAL EXAMINATION: VITAL SIGNS: Stable, nontoxic. HEENT: Benign. NECK: Supple, no thyromegaly. CHEST: Symmetric anatomy, equal expansion. No wheeze, no rhonchi. HEART: Normal sinus rhythm, no gallop, no murmur. ABDOMEN: Soft. No hepato-organomegaly. Bowel sounds present. EXTREMITIES: No cyanosis, no pedal edema. NEUROLOGIC: Alert and oriented to time, place, person. IMPRESSION: Hepatic flexure carcinoma. Biopsies pending. The patient otherwise is stable. Does not look to have metastatic disease. Therefore, we are going to discharge the patient, awaiting for biopsies as outpatient and decision of surgery or no surgery is going to be made by family after the data is available. [place], [place] PROGRESS NOTE NAME: ZEESHAN KAPADIA UNIT #: [id number] ROOM: 506 DOCTOR: CELESTINE CANADA MD BIRTHDATE: [birth year] CELESTINE CANADA MD CM:PNTRANS [id number] CELESTINE CANADA MD 01/12/191855 interface
--- NOTE | ~2019-01-09 | O ---
[place], [place] OPERATIVE NOTE NAME: ZEESHAN KAPADIA UNIT #: [id number] ROOM: 506 DOCTOR: CELESTINE CANADA MD BIRTHDATE: [birth year] DOS: 01/10/2019 INDICATIONS: The patient is an 88-year-old patient, who has presented with GI bleed, undergoing investigation. PROCEDURE: Today's procedure part of investigation is colonoscopy plus tattoo marking. PREMEDICATION: Propofol. SCOPE: Olympus forward-viewing colonoscope 10L video. REPORT: After putting the patient in left lateral position and application of lubricant to the scope, the scope was introduced. Thereafter, under direct visualization, advanced through the length of colon without difficulty. Severe diverticulosis of colon was appreciated. As I approached a hepatic flexure, there is a large circumferential partially obstructive mass in the hepatic flexure noticed. This was biopsied tattoo marked, base of the cecum reviewed position of masses at hepatic flexure, severe diverticulosis noticed. Biopsies obtained. The patient extubated and tolerated the procedure well. IMPRESSION: Hepatic flexure carcinoma, advanced; severe diverticulosis of sigmoid colon, status post biopsy and tattoo marking. PLAN AND DISCUSSION: I am going to organize a CT scan of the abdomen and pelvis, ruling out metastatic lesion, particularly in view of hyponatremia and other pathology she had and further decision with the family regarding surgery. Thank you very much indeed. CELESTINE CANADA MD CM:OPRECORD:OPERATIVE NOTE [phone] CELESTINE CANADA MD 01/11/19 0635 interface
--- NOTE | ~2019-01-09 | CON ---
[place], [place] REPORT OF CONSULTATION NAME: ZEESHAN KAPADIA UNIT #: [id number] ROOM: 506 DOCTOR: NANCIE TAYCELESTINE BIRTHDATE: [birth year] DOS: 01/10/2019 GASTROENDOSCOPIC REPORT HISTORY OF PRESENT ILLNESS: This patient is an 88-year-old, who has presented with chief complaint of GI bleed, undergoing investigation. At the time of admission, her white blood cell was 11.7, H and H of 11 and 34. INR was 0.9. Lactic acid was 1.0. Comprehensive metabolic panel: GFR is greater than 60. Initially, she was severely hyponatremic at 124 with potassium of 3.3 and lipase of 71. Liver function test is normal. CBC differential remains the same, borderline anemia. PAST MEDICAL HISTORY: Associated with dizziness, hypertension, gastrointestinal bleed, and hyponatremia. PAST SURGICAL HISTORY: Salpingo-oophorectomy, partial thyroidectomy, and podiatric surgery. MEDICATIONS: Medication list reviewed, aspirin 81 mg. ALLERGIES: No known medications. SOCIAL HISTORY: The patient is a nonsmoker, nonalcohol consumer. FAMILY HISTORY: Noncontributory. REVIEW OF SYSTEMS: HEENT: In general, denies double vision, blurred vision. RESPIRATORY: Denies shortness of breath. CARDIOVASCULAR: Denies chest pain. DIGESTIVE SYSTEM: GI bleed. PHYSICAL EXAMINATION: VITAL SIGNS: Stable. HEENT: Within normal limits. NECK: Supple. No thyromegaly. CHEST: Symmetric anatomy, equal expansion. No wheeze. No rhonchi. HEART: Normal sinus rhythm. No gallop. No murmur. ABDOMEN: Soft. No hepato-organomegaly. Bowel sounds present. No pulsatile mass. No tenderness. EXTREMITIES: No cyanosis. No pedal edema. NEUROLOGIC: She is alert and oriented to time, place, and person. IMPRESSION: Gastrointestinal bleed, source unknown; borderline anemia. She has never had a colonoscopy in her lifetime. She has had wine colored stool. PLAN AND DISCUSSION: We are going to consider colonoscopy. Labs reviewed, records reviewed, and data reviewed. I will proceed with colonoscopy. Thank you very much indeed. [place], [place] REPORT OF CONSULTATION NAME: ZEESHAN KAPADIA UNIT #: [id number] ROOM: 506 DOCTOR: CELESTINE CANADA MD BIRTHDATE: [birth year] CELESTINE CANADA MD CM:CONSTR:REPORT OF CONSULTATION 2032 02/09/19 0736 interface
[~2019-01-09 15:25] MED LIST changes: -LOSARTAN-HCTZ1 EAC2 PO
[2019-01-09 15:31] VITALS: BP 185/87
[2019-01-09 15:58] LABS: BILIRUBIN NEGATIVE (NEGATIVE); BLOOD NEGATIVE (NEGATIVE); CLARITY CLEAR (CLEAR); COLOR YELLOW (YELLOW); GLUCOSE NEGATIVE (NEGATIVE); KETONE NEGATIVE (NEGATIVE); LEUKO ESTERASE NEGATIVE (NEGATIVE); NITRITE NEGATIVE (NEGATIVE); SPECIFIC GRAVITY <= 1.005 (1.005-1.030); UROBILINOGEN 0.2 E.U./dl (0.2-1.0)
[2019-01-09 16:05] LABS: BACTERIA TRACE; EPITHELIAL CELLS 0-2; WBC 0-2 wbc/hpf (0-5)
[2019-01-09 16:43] LABS: BASO % 0.5 % (0.0-1.0); EOS # 0.1 10*3/uL (0.0-0.4); EOS % 1.3 % (1.0-4.0); HEMATOCRIT 34.9 % (37.0-47.0); HEMOGLOBIN 11.7 g/dl (12.0-16.0); LYMPH # 1.3 10*3/uL (1.3-4.4); LYMPH % 17.1 % (27.0-41.0); MEAN CELL VOLUME 87.9 fl (81.0-99.0); MEAN CORPUSCULAR HGB 29.5 pg (27.0-31.0); MEAN CORPUSCULAR HGB CONC 33.5 g/dl (33.0-37.0); MEAN PLATELET VOLUME 9.9 fl (9.6-12.3); MONO # 0.7 10*3/uL (0.1-1.0); MONO % 8.7 % (3.0-9.0); NEUT # 5.4 10*3/uL (2.3-7.9); NEUT % 71.9 % (47.0-73.0); PLATELET COUNT AUTOMATED 255 10*3/uL (130-400); RED BLOOD COUNT 3.97 10*6/uL (4.10-5.10); RED CELL DISTRI WIDTH 13.2 % (0-14.5); WHITE BLOOD COUNT 7.5 10*3/uL (4.8-10.8)
[2019-01-09 16:53] VITALS: BP 177/95
[2019-01-09 16:54] LABS: ACT PARTIAL THROMBO TIME 24.8 SECONDS (20.0-32.1); INTERNATIONAL NORM RATIO 0.9 (2.0-3.5)
[2019-01-09 17:08] LABS: ALKALINE PHOSPHATASE 112 U/L (45-117); BUN 12 mg/dl (7-24); CHLORIDE 89 mmol/L (98-107); CREATININE 0.66 mg/dL (0.55-1.02); LIPASE 71 U/L (73-393); POTASSIUM 3.3 mmol/L (3.5-5.1); SGOT/AST 13 IU/L (3-35); SGPT/ALT 17 U/L (12-78); SODIUM 124 mmol/L (136-145); TOTAL PROTEIN 6.5 gm/dL (6.4-8.2)
[2019-01-09 17:10] LABS: TROPONIN I < 0.015 ng/ml (<0.045)
[2019-01-09 18:10] VITALS: BP 168/76
--- NOTE | 2019-01-09 19:16 | NUR ---
MAY TAKE THE PATIENT TO THE FLOOR WITH OUT THE BRANCH SERVICE SPECIALIST. PER DR ISLAS. THE PATIENT HAS NOT BEEN ON BRANCH SERVICE SPECIALIST IN HER TIME IN ER. DENIES ANY CHEST PAIN OR SOB. EVELINE MATTHEW RN.
--- NOTE | 2019-01-09 19:17 | NUR ---
CHANGE OF SHIFT ON 5TH FLOOR NURSE UNABLE TO TAKE REPORT. REPORT GIVEN TO ER NURSE DEA AND THE PATIENT WAS TAKEN TO TO THE FLOOR. EVELINE MATTHEW RN.
[2019-01-09 19:25] VITALS: BP 137/87
--- NOTE | 2019-01-09 19:25 | NUR ---
A 88, admitted to 5E, under the services of TASHIA Regan DO with a diagnosis of DIZZINESS, GI BLEED, HYPONATREMIA. Chief complaint is DIZZINESS. Patient arrived via ambulatory from ER. Monitor applied. Initial assessment completed. Vital signs taken and recorded. TASHIA REGAN DO notified of admission to the unit. Orders received. See assessment for past medical history, medications and allergies. Patient and/or family oriented to unit. visitation policy reviewed. Clothing/patient valuable form completed. MORENO CAIN
[2019-01-09 20:00] VITALS: BP 137/87
[2019-01-09] MEDS ORDERED: LOSARTAN-HCTZ1 EAC2 PO (21:37)
--- NOTE | 2019-01-09 22:45 | NUR ---
DR. CANADA NOTIFIED OF CONSULT FOR DIZZINESS, GI BLEED. NEW ORDER FOR CBC IN AM AND CALL WITH RESULTS.
[2019-01-10] VITALS (7 sets, daily range): BP systolic 136–178; BP diastolic 60–94
[2019-01-10 06:25] LABS: BASO # 0.1 10*3/uL (0.0-0.1); BASO % 0.7 % (0.0-1.0); EOS # 0.2 10*3/uL (0.0-0.4); EOS % 2.2 % (1.0-4.0); HEMATOCRIT 38.7 % (37.0-47.0); HEMOGLOBIN 12.9 g/dl (12.0-16.0); LYMPH % 29.4 % (27.0-41.0); MEAN CORPUSCULAR HGB 29.3 pg (27.0-31.0); MEAN CORPUSCULAR HGB CONC 33.3 g/dl (33.0-37.0); MEAN PLATELET VOLUME 9.8 fl (9.6-12.3); MONO # 0.6 10*3/uL (0.1-1.0); MONO % 8.2 % (3.0-9.0); NEUT % 58.9 % (47.0-73.0); PLATELET COUNT AUTOMATED 281 10*3/uL (130-400); RED CELL DISTRI WIDTH 13.2 % (0-14.5); WHITE BLOOD COUNT 6.7 10*3/uL (4.8-10.8)
[2019-01-10 06:33] LABS: BUN 9 mg/dl (7-24); CHLORIDE 103 mmol/L (98-107); CREATININE 0.52 mg/dL (0.55-1.02); PHOSPHOROUS 3.5 mg/dL (2.5-4.9); POTASSIUM 4.1 mmol/L (3.5-5.1)
[2019-01-10 06:36] LABS: SODIUM 136 mmol/L (136-145)
--- NOTE | 2019-01-10 08:00 | NUR ---
PT SEEN AT THIS TIME. PT IS AWAKE AND ALERT. NO COMPLAINTS AT THIS TIME. PT EDUCATED ON COLO PREP. NO S/S OF DISTRESS OR SOB NOTED AT THIS TIME. WILL CONTINUE TO MONITOR.
--- NOTE | 2019-01-10 11:38 | NUR ---
PHYSICAL THERAPY Patient on commode and prepping for colonoscopy this date/ requests perhaps later time or date for PT. Thank you for this referral. Jo Rios,PT
--- NOTE | 2019-01-10 15:13 | NUR ---
Wrapper Cashier in to talk to patient. Patient states lives at HOME with ALONE. There are BASEMENT steps in the home. Physician: ROSARIO Pharmacy: [facility] [place] health services: NONE Patient's level of ADLs: INDEPENDENT Patient has working utilities: YES DME: NONE Follow-up physician's appointment after d/c: WILL BE MADE BY HOSPITALIST NURSE DIRECTOR ON DISCHARGE Does patient want to access PORTAL?: NO Discharge plan PT LIVES AT HOME ALONE STATES SHE HAS FAMILY THAT LIVES NEARBY. DENIES ANY NEEDS ON DISCHARGE. STATES SHE IS INDEPENDENT IN HER CARE. WILL CONTINUE TO FOLLOW. STATES SHE WILL HAVE A RIDE HOME ON DISCHARGE.. WESTLEY BROWN
--- NOTE | 2019-01-10 23:40 | NUR ---
PATIENT IS SLEEPING WITH EASY AND REGULAR RESPERS ON ROOM AIR. ASSESSMNT IS COMPLETE WITH NO C/O OR S/S OF DISTRESS NOTED AT THIS TIME. BED IS LOW, LOCKED, ALARMED, AND CALL LIGHT IS WITHIN REACH. SEE SHIFT ASSESSMENT.
[2019-01-11] VITALS: BP 143/60
--- NOTE | 2019-01-11 | NUR ---
ASSUMED CARE FOR THIS PT AT THIS TIME. PT RESTING QUIETLY IN BED. AWOKE EASILY. NO C/O VOICED. BED IN LOW POSITION W/WHEELS LOCKED AND ALARM ON. CALL LIGHT IN REACH.
[2019-01-11 06:57] LABS: BUN 6 mg/dl (7-24); CHLORIDE 109 mmol/L (98-107); CREATININE 0.56 mg/dL (0.55-1.02); POTASSIUM 3.7 mmol/L (3.5-5.1); SODIUM 141 mmol/L (136-145)
[2019-01-11 08:00] VITALS: BP 136/86
--- NOTE | 2019-01-11 08:31 | NUR ---
PHYSICAL THERAPY PAtient reports she has no PT needs. Reports 100 % (I) in room and ambulating AD MARIFER throughout room and to restroom. Will d/c PT at this time, no PT skills/needs. PAtient agrees. Thank you for this referral. Jo Rios,PT
[2019-01-11 08:53] VITALS: BP 146/82
[2019-01-11 11:33] VITALS: BP 138/80
--- NOTE | 2019-01-11 12:36 | NUR ---
PT CONTINUES TO DENY NEEDS AT THIS TIME ON DISCHRGE. WILL CONTINUE TO FOLLOW.
[2019-01-11 16:00] VITALS: BP 149/79
[2019-01-11 20:00] VITALS: BP 161/69
[2019-01-12] VITALS: BP 133/60
[2019-01-12 07:56] VITALS: BP 140/84
--- NOTE | 2019-01-12 08:00 | NUR ---
Patient resting quietly with no c/o discomfort. Respirations easy and regular. Vital signs stable. No overt distress. BO VARGHESE
[2019-01-12 08:29] LABS: BASO # 0.1 10*3/uL (0.0-0.1); BASO % 0.9 % (0.0-1.0); EOS # 0.2 10*3/uL (0.0-0.4); EOS % 2.3 % (1.0-4.0); HEMATOCRIT 38.4 % (37.0-47.0); HEMOGLOBIN 12.7 g/dl (12.0-16.0); LYMPH # 1.2 10*3/uL (1.3-4.4); LYMPH % 16.1 % (27.0-41.0); MEAN CELL VOLUME 89.9 fl (81.0-99.0); MEAN CORPUSCULAR HGB 29.7 pg (27.0-31.0); MEAN CORPUSCULAR HGB CONC 33.1 g/dl (33.0-37.0); MEAN PLATELET VOLUME 9.9 fl (9.6-12.3); MONO # 0.5 10*3/uL (0.1-1.0); MONO % 6.8 % (3.0-9.0); NEUT # 5.5 10*3/uL (2.3-7.9); NEUT % 73.6 % (47.0-73.0); PLATELET COUNT AUTOMATED 256 10*3/uL (130-400); RED BLOOD COUNT 4.27 10*6/uL (4.10-5.10); WHITE BLOOD COUNT 7.5 10*3/uL (4.8-10.8)
[2019-01-12 08:44] LABS: ALKALINE PHOSPHATASE 103 U/L (45-117); BUN 10 mg/dl (7-24); CHLORIDE 108 mmol/L (98-107); POTASSIUM 3.4 mmol/L (3.5-5.1); SGOT/AST 16 IU/L (3-35); SGPT/ALT 19 U/L (12-78); SODIUM 142 mmol/L (136-145); TOTAL PROTEIN 6.6 gm/dL (6.4-8.2)
--- NOTE | 2019-01-12 10:00 | NUR ---
FAMILY AT BEDSIDE, ROCHELLE CABRAL IN TO SEE PT THIS AM. PT IS COOPERATIVE PLEASANT AND MEDICATION COMPLIANT. NO COMPLAINT OF PAIN,
[2019-01-12 11:26] VITALS: BP 136/82
--- NOTE | 2019-01-12 13:50 | NUR ---
Discharge instructions reviewed with patient/family. Patient receptive and verbalizes understanding.. Written instructions given to patient/family. PT GIVEN DR. CANADA NUMBERS TO BOTH OFFICIES, IV REMOVED WITHOUT DIFFICULTY, MONITOR REMOVED AT THIS TIME. BO VARGHESE
== END 2019-01-12 13:50 | disposition home or self-care (01) | DRG 375 ==
LOC: ED 15:25 → EDHOLD 18:26 → 5E 18:26
PROVIDERS: Emergency Medicine; Internal Medicine Gastroenterology; Registered Nurse; Student in an Organized Health Care Education/Training Program; ADMIT Internal Medicine
PROC: 0DBL8ZX Excision of Transverse Colon, Via Natural or Artificial Opening Endoscopic, Diagnostic (ICD-10-PCS; principal; 2019-01-10)
DX: C18.3 Malignant neoplasm of hepatic flexure (principal); E87.1 Hypo-osmolality and hyponatremia; M48.54XA Collapsed vertebra, not elsewhere classified, thoracic region, initial encounter for fracture; R59.0 Localized enlarged lymph nodes; K57.30 Diverticulosis of large intestine without perforation or abscess without bleeding; D50.0 Iron deficiency anemia secondary to blood loss (chronic); I10 Essential (primary) hypertension; E89.0 Postprocedural hypothyroidism; Z90.722 Acquired absence of ovaries, bilateral; Z90.79 Acquired absence of other genital organ(s); Z82.49 Family history of ischemic heart disease and other diseases of the circulatory system; Z79.82 Long term (current) use of aspirin; Z79.899 Other long term (current) drug therapy